=== PATIENT | female | born 1965 | race Hispanic/Latino ===

== ENCOUNTER 2016-09-29 10:51 | Emergency (ER) | payer OTHER ==
[2016-09-29 11:01] VITALS: TEMP 97.7; O2SAT 97
--- NOTE | 2016-09-29 12:36 | C.PDOC ---
History Of Present Illness 51 yr old female presents to the ER with complaints of bilateral foot pain for 1 day, left>right. Patient states she was walking and twisted her foot. Denies fall, leg pain, weakness or numbness. Time Seen by Provider: 09/29/16 11:04 Chief Complaint (Nursing): Lower Extremity Problem/Injury History Per: Patient History/Exam Limitations: no limitations Onset/Duration Of Symptoms: Days (1) Past Medical History Reviewed: Historical Data, Nursing Documentation, Vital Signs Vital Signs: Last Vital Signs Temp 97.7 F 09/29/16 13:00 Pulse 97 H 09/29/16 13:00 Resp 18 09/29/16 13:00 BP 126/80 09/29/16 13:00 Pulse Ox 97 09/29/16 17:36 - Medical History PMH: Arthritis (KNEE), Diabetes, HTN, Hypercholesterolemia Surgical History: Cholecystectomy (1995) - [facility] Procedures OTHER LOCAL DESTRUC SKIN (09/19/02) Family History: States: No Known Family Hx - Social History Hx Tobacco Use: Yes Hx Alcohol Use: No Hx Substance Use: No - Immunization History Hx Tetanus Toxoid Vaccination: No Hx Influenza Vaccination: No Hx Pneumococcal Vaccination: No Review Of Systems Except As Marked, All Systems Reviewed And Found Negative. Musculoskeletal: Positive for: Foot Pain (Bilateral foot pain, left>right. ). Negative for: Leg Pain Neurological: Negative for: Weakness, Numbness Physical Exam - Physical Exam Appears: Non-toxic, No Acute Distress Skin: Warm, Dry, No Rash Head: Atraumatic, Normacephalic Extremity: Capillary Refill (<2), Other ((+) Swelling and tenderness to the lateral aspect of the left foot, dorsal. Decrease ROM. ) Pulses: Left Dorsalis Pedis: Normal, Right Dorsalis Pedis: Normal Neurological/Psych: Oriented x3, Normal Speech, Normal Motor ED Course And Treatment O2 Sat by Pulse Oximetry: 97 (RA ) Pulse Ox Interpretation: Normal - Other Rad X-Ray - Bilateral Feet X-Ray: Viewed By Me, Read By Radiologist Interpretation: PROCEDURE: Bilateral Feet Radiographs. HISTORY: r/o fx. COMPARISON: Right foot great toe radiographs performed 09/18/13. FINDINGS: BONES: Right Foot: No acute displaced fracture. Calcaneal enthesophyte. Left Foot: Oblique mildly displaced fracture of the left mid to distal shaft 5th metatarsal. Calcaneal enthesophyte and heel spur. JOINTS: Right Foot: No dislocation. Left Foot: No dislocation. SOFT TISSUES: Right Foot: Unremarkable. No evidence of radiopaque foreign body. Left Foot: Soft tissue swelling. No evidence of radiopaque foreign body. OTHER FINDINGS: None. IMPRESSION: Oblique mildly displaced fracture of the left mid to distal shaft 5th metatarsal. Associated soft tissue swelling. Medical Decision Making Medical Decision Making: PLAN: * X-Ray - Bilateral Foot Disposition - Disposition Referrals: Melly Power DPM [Staff Provider] - Disposition: HOME/ ROUTINE Disposition Time: 12:40 Condition: GOOD Additional Instructions: Thank you for letting us take care of you today. Your provider was Dr. Muro. You were treated for a foot fracture. The emergency medical care you received today was directed at your acute symptoms. If you were prescribed any medication, please fill it and take as directed. It may take several days for your symptoms to resolve. Return to the Emergency Department if your symptoms worsen, do not improve, or if you have any other problems. Please contact your doctor or call one of the physicians/clinics you have been referred to that are listed on the Patient Visit Information form that is included in your discharge packet. Bring any paperwork you were given at discharge with you along with any medications you are taking to your follow up visit. Our treatment cannot replace ongoing medical care by a primary care provider (PCP) outside of the emergency department. Thank you for allowing the [facility] team to be part of your care today. Follow up with Dr. Power (podiatry) this Sunday in the clinic from 9-12pm, or the [place] office. Do not put any weight on the foot until you follow up. Instructions: Crutch Instructions (ED), Foot Fracture in Adults (ED) Forms: [employer] (Chinese) - Clinical Impression Clinical Impression: Metatarsal bone fracture - Scribe Statement The provider has reviewed the documentation as recorded by the Frankibe Antonieta Mark Provider Attestation: All medical record entries made by the Scribe were at my direction and personally dictated by me. I have reviewed the chart and agree that the record accurately reflects my personal performance of the history, physical exam, medical decision making, and the department course for this patient. I have also personally directed, reviewed, and agree with the discharge instructions and disposition.
[2016-09-29 13:02] VITALS: BP 126/80; PULSE 97; RESP 18
--- NOTE | 2016-09-29 13:42 | RAD ---
PROCEDURE: Bilateral Feet Radiographs. HISTORY: r/o fx COMPARISON: Right foot great toe radiographs performed 09/18/13 FINDINGS: BONES: Right Foot: No acute displaced fracture. Calcaneal enthesophyte. Left Foot: Oblique mildly displaced fracture of the left mid to distal shaft 5th metatarsal. Calcaneal enthesophyte and heel spur. JOINTS: Right Foot: No dislocation. Left Foot: No dislocation. SOFT TISSUES: Right Foot: Unremarkable. No evidence of radiopaque foreign body. Left Foot: Soft tissue swelling. No evidence of radiopaque foreign body. OTHER FINDINGS: None. IMPRESSION: Oblique mildly displaced fracture of the left mid to distal shaft 5th metatarsal. Associated soft tissue swelling.
== END 2016-09-29 13:19 | disposition home or self-care (01) ==
LOC: C.ER 10:51
DX: S92.352A Displaced fracture of fifth metatarsal bone, left foot, initial encounter for closed fracture (principal); X50.9XXA Other and unspecified overexertion or strenuous movements or postures, initial encounter; Y93.01 Activity, walking, marching and hiking